=== PATIENT | male | born 1990 | race Caucasian/White ===

== ENCOUNTER 2021-07-12 09:58 | Emergency (ER) | payer BC ==
[~2021-07-12] VITALS: Ht 190.5 cm; Wt 90.0 kg
--- NOTE | 2021-07-12 10:47 | RAD ---
EXAMINATION: Left shoulder radiograph. VIEWS: 3 COMPARISON: None INDICATION:31 years, Male, status post falling down. FINDINGS: No acute fracture, dislocation or subluxation. No bone erosion or periosteal reaction. No soft tissue swelling. Visualized left lung is unremarkable. IMPRESSION: No acute osseous process. Electronically signed by: Evans Busch MD (07/12/2021 10:45 AM) [facility]
--- NOTE | 2021-07-12 11:15 | PHYS DOC ---
Past History Past Medical History: No Pertinent History Past Surgical History: Other Additional Past Surgical Histo: L5 S1 Smoking: Cigarettes Alcohol Use: Occasionally Drug Use: None General Adult EDM: Chief Complaint: SHOULDER INJURY HPI: HPI: 31-year-old male presents with report of left sided shoulder pain after mechanical fall out of the hot tub at approximately 0300. Patient reports drinking EtOH. Patient reports fall straight onto his left arm with decreased range of motion. Patient does report some intermittent numbness of his left hand. Denies prior injury to the shoulder. Denies loss of consciousness or headache. Denies neck pain. Denies use of blood thinners. Review of Systems: Review of Systems: Constitutional: Denies fever or chills Eyes: Denies redness or eye pain HENT: Denies nasal congestion or epistaxis Respiratory: Denies cough or shortness of breath Cardiovascular: Denies chest pain or palpitations GI: Denies abdominal pain, nausea, or vomiting : Denies dysuria or hematuria Musculoskeletal: Denies neck pain; reports left shoulder pain and limited ROM Integument: Denies rash or skin lesions Neurologic: Denies headache, focal weakness or sensory changes Complete systems were reviewed and found to be within normal limits, except as documented in this note. Allergies: Allergies: Allergies Coded Allergies Type Severity Reaction Last Updated Verified No Known Drug Allergies 07/12/21 No Physical Exam: PE: Constitutional: Well developed, well nourished, no acute distress, non-toxic appearance HENT: Normocephalic, atraumatic, nares clear Eyes: PERRL, EOMI, conjunctiva normal, no discharge Neck: Normal range of motion, no mildine tenderness, supple Lungs & Thorax: No respiratory distress, equal chest rise and fall Skin: Warm, dry, no erythema, no rash Extremities: Left glenohumeral tenderness, ROM limited secondary to pain, no edema, left radial pulse +2 Neurologic: Alert and oriented X 3, normal motor function, normal sensory function, no focal deficits noted Psychologic: Affect normal, judgment normal Current Patient Data: Vital Signs: Vital Signs Date Time Temp Pulse Resp B/P (MAP) Pulse Ox O2 Delivery O2 Flow Rate FiO2 07/12/21 10:12 103 20 142/78 (99) 99 Room Air EKG: EKG: [] Radiology/Procedures: Radiology/Procedures: PROCEDURE: SHOULDER 2+V LEFT EXAMINATION: Left shoulder radiograph. VIEWS: 3 COMPARISON: None INDICATION:31 years, Male, status post falling down. FINDINGS: No acute fracture, dislocation or subluxation. No bone erosion or periosteal reaction. No soft tissue swelling. Visualized left lung is unremarkable. IMPRESSION: No acute osseous process. Electronically signed by: Evans Busch MD (07/12/2021 10:45 AM) [facility] Heart Score: C/O Chest Pain: N/A Course & Med Decision Making: Course & Med Decision Making Pertinent Imaging studies reviewed. (See chart for details) Patient presents with mechanical fall onto left shoulder with pain and limited range of motion. Ice applied. X-ray obtained without signs of acute fracture or dislocation. Pain medication offered which was declined by patient. Patient does have some limited range of motion secondary to pain. Concern for sprain versus rotator cuff injury. Shoulder immobilizer placed. Patient instructed to perform shoulder circles at least 5 times daily 10 times in each direction. Patient stable for discharge with outpatient follow-up with PCP/orthopedics. Orthopedic referral provided. Discussed findings and plan with patient, who acknowledges understanding and agreement. Shruthi Disclaimer: Shruthi Disclaimer: This electronic medical record was generated, in whole or in part, using a voice recognition dictation system. Splinting Splinting : Location: Left shoulder Pre-Made Type: Shoulder immobilizer Pre-Proc Neuro Vasc Exam: normal Post-Proc Neuro Vasc Exam: normal, unchanged from pre-exam Departure Departure: Impression: Primary Impression: Shoulder pain, left Qualified Codes: M25.512 - Pain in left shoulder Disposition: HOME / SELF CARE / HOMELESS Condition: STABLE Referrals: PCP,RUBI (PCP) PORTIA WALTERS II, MD Patient Instructions: Shoulder Immobilizer, Shoulder Pain, [id number], Shoulder Sprain Additional Instructions: Ice area of discomfort 20 minutes on then leave off for next 20 minutes. Repeat several times daily for the next few days. Use [id number] ibuprofen and or Tylenol for pain or discomfort. Make sure to take arm out of shoulder immobilizer and perform shoulder circles 10 times in each direction. Repeat at least 5 times daily. FORD AYALA DO Jul 12, 2021 11:15
[2021-07-12 11:34] VITALS: BP 148/78
== END 2021-07-12 11:35 | disposition home or self-care (01) ==
LOC: ER 09:58
DX: M25.512 Pain in left shoulder (principal); F17.210 Nicotine dependence, cigarettes, uncomplicated; W18.39XA Other fall on same level, initial encounter; Y93.89 Activity, other specified; Y92.89 Other specified places as the place of occurrence of the external cause; Y99.8 Other external cause status
CPT/HCPCS: 29105; 73030; 99283